=== PATIENT | male | born 1990 | race Caucasian/White ===

== ENCOUNTER 2017-10-29 02:07 | Emergency (ER) | payer OTHER ==
[2017-10-29] MEDS: DEXAMETHASONE 10 MG/ML 1 ML INJ IM (05:43)
[2017-10-29] MEDS: KETOROLAC 30 MG INJ IV (05:43)
== END 2017-10-29 07:16 | disposition home or self-care (01) ==
LOC: FTE 02:07
DX: M75.32 Calcific tendinitis of left shoulder (principal); R40.2412 Glasgow coma scale score 13-15, at arrival to emergency department
CPT/HCPCS: 73030; 96372; 96374; 99284-25